=== PATIENT | male | born 1975 | race Caucasian/White ===

== ENCOUNTER 2021-05-18 21:15 | Emergency (ER) | payer BC ==
[~2021-05-18] VITALS: Ht 188 cm; Wt 77.1 kg
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
[2021-05-18] MEDS ORDERED: BACITRACIN ZINC OINT PACKET 1 EA PACKET TP ONE ×2 (21:59→22:00)
[2021-05-18 22:08] VITALS: BP 134/77
--- NOTE | 2021-05-18 22:08 | NUR ---
Patient discharged to home in stable condition. Written and verbal after care instructions given. Patient verbalizes understanding of instruction.
== END 2021-05-18 22:28 | disposition home or self-care (01) ==
LOC: ER 21:19
DX: T23.232A Burn of second degree of multiple left fingers (nail), not including thumb, initial encounter (principal); X12.XXXA Contact with other hot fluids, initial encounter; Y93.89 Activity, other specified; Y92.89 Other specified places as the place of occurrence of the external cause; Y99.8 Other external cause status